=== PATIENT | male | born 1980 | race Caucasian/White ===

== ENCOUNTER 2019-11-07 07:00 | Day surgery (SDC) | payer OTHER ==
[2019-11-07] VITALS (7 sets, daily range): BP systolic 120–173; BP diastolic 65–106; PULSE 92–98; TEMP 98.5–98.7
[~2019-11-07] VITALS: Ht 185.4 cm; Wt 208.4 kg
[~2019-11-07 07:00] MED LIST: ANTIVERT 25MG25 MG PO; CEPHALEXIN500 M1 PO; PERCOCET 325 MG1 TA2 PO; PREDNISONE20 MG PO; VALIUM 2MG T2 MG/TAB PO
[2019-11-07 08:02] LABS: HEMATOCRIT 46.7 % (42.0-52.0); HEMOGLOBIN 15.4 g/dl (13.5-18.0); MEAN CELL VOLUME 86 fl (80.0-100.0); MEAN CORPUSCULAR HEMOGLOBIN 28 pg (27.0-31.0); MEAN CORPUSCULAR HGB CONC 33 g/dl (33.0-37.0); MEAN PLATELET VOLUME 8.7 fl (7.4-10.4); PLATELET COUNT 205 K/mm3 (130-400); RED BLOOD COUNT 5.46 M/mm3 (4.20-5.60); REDCELL DISTRIBUTION WIDTH-CV 14.4 % (11.5-14.5)
[2019-11-07 08:09] LABS: CALCIUM 9.1 mg/dL (8.4-10.2); CREATININE, serum 0.66 (0.66-1.25); POTASSIUM 4.1 mmol/L (3.4-5.0)
[2019-11-07 08:27] LABS: ARTERIAL BLD GAS O2 SATURATION 93.6 % (92-100); ARTERIAL BLD GAS TCO2 CT 28.8; ARTERIAL BLOOD GAS BASE EXCESS 2.9 (-2-2); ARTERIAL BLOOD GAS HCO3 27.5 meq/L (22-26); ARTERIAL BLOOD GAS PCO2 42.2 mmHg (35-45); ARTERIAL BLOOD GAS PO2 67.8 mmHg (80-100); ARTERIAL BLOOD GAS pH 7.43 (7.35-7.45)
--- NOTE | 2019-11-07 12:15 | NUR ---
The patient arrived back to [facility] from the recovery room at this time. The patient appears alert and oriented at this time. The patient reports pain in his abdomen but denies any nausea at this time. The patient has three lap sites that are covered with parra set and without redness or edema. The patient's post operative vital signs were started at this time. The patient agrees to try some grape juice and strawberry jello. The patient's mother was brought back to be at his bedside. Call light is within reach. Will continue to monitor the patient.
[2019-11-07] MEDS ORDERED: NORCO 325 MG-51 TAB PO (12:29)
--- NOTE | 2019-11-07 12:35 | NUR ---
The patient finished his juice and jello and appeared to tolerate both well. The patient was encouarged to take a deep breath and cough while splinting his abdomen with a pillow. He verbalized concerns of increased pain and is to be given a PRN dose of [place]. The patient's mother remains at his bedside. Will continue to monitor the patient.
--- NOTE | 2019-11-07 12:45 | NUR ---
The patient was given a PRN dose off norco 1 tab as ordered for pain control at this time. The patient was given some ice water at this time. Vital signs appear stable. Mother remains at his bedside. Will continue to monitor the patient.
--- NOTE | 2019-11-07 13:00 | NUR ---
The patient appears to be resting comfortably on the cart at this time. Respirations even and unlabored. Will continue to monitor the patient.
--- NOTE | 2019-11-07 13:30 | NUR ---
The patient appears to be resting quietly with his eyes closed at this time. Respirations even and unlabored. Vital signs appear stable. Call light is within reach. Will continue to monitor the patient.
--- NOTE | 2019-11-07 14:15 | NUR ---
The patient was weaned off his oxygen and appears to tolerating room air well. The patient was assisted to first sit up on the side of the bed and then ambulate to the bathroom with the stand by assistance of two nurses. The patient voided without difficulty and voices a desire to be discharged home.
--- NOTE | 2019-11-07 14:35 | NUR ---
Discharge instructions were reviewed with the patient and his mother at this time. They both verbalized understanding and have no questions for the nurse at this time. The patient's IV to his right forearm was removed and a pressure dressing was applied to the site. The patient is dressed and ready to be escorted out.
--- NOTE | 2019-11-07 14:45 | NUR ---
The patient was escorted out via wheelchair to a private vehicle by SARINA Wright. The patient's belongings and discharge paperwork were sent with him. The patient's mother is present to drive him home.
== END 2019-11-07 14:45 | disposition home or self-care (01) ==
LOC: SDCO 07:00
PROVIDERS: Nurse Anesthetist, Certified Registered
DX: K42.9 Umbilical hernia without obstruction or gangrene (principal); E66.2 Morbid (severe) obesity with alveolar hypoventilation; Z68.44 Body mass index [BMI] 60.0-69.9, adult
CPT/HCPCS: C1781; J0330; J0690; J1100; J1170; J1885; J2405; J2704; J2710; J3010; J7030